=== PATIENT | female | born 1990 ===

== ENCOUNTER 2017-04-15 04:44 | Emergency (ER) | payer SELFPAY ==
[2017-04-15 04:54] VITALS: RESP 16; TEMP 98.4; O2SAT 98
[2017-04-15 05:41] VITALS: BP 128/80; PULSE 96
== END 2017-04-15 05:38 | disposition home or self-care (01) | DRG 153 ==
LOC: ED 04:44
DX: J06.9 Acute upper respiratory infection, unspecified (principal)
CPT/HCPCS: 71020; 99282

== ENCOUNTER 2017-08-03 07:58 | Emergency (ER) | payer SELFPAY ==
[2017-08-03 08:08] VITALS: BP 117/82; RESP 20
[2017-08-03] MEDS ORDERED: ONDANSETRON 4 MG ODT BU ONE (08:25)
[2017-08-03] MEDS ORDERED: ALUMINUM/MAGNESIUM 30 ML SUS PO ONE (08:26)
[2017-08-03] MEDS ORDERED: PANTOPRAZOLE SODIUM 40 MG ECT PO ONE (08:26)
[2017-08-03 08:46] VITALS: PULSE 84; TEMP 96.8; O2SAT 94
== END 2017-08-03 10:05 | disposition home or self-care (01) | DRG 392 ==
LOC: ED 07:58
DX: K29.00 Acute gastritis without bleeding (principal); K21.9 Gastro-esophageal reflux disease without esophagitis
CPT/HCPCS: 93005; 99282; 99283; A9270-GY